=== PATIENT | male | born 1990 | race Caucasian/White ===

== ENCOUNTER 2020-12-28 14:06 | Emergency (ER) | payer OTHER ==
[~2020-12-28 14:06] MED LIST: COLACE 100MG C100 MG PO; NORCO 5-325 TA1 EACH PO; NORCO 7.5-3251 EACH PO; ZOFRAN ODT4 MG SL
[2020-12-28 15:21] LABS: HEMOGLOBIN 15.1 gm/dl (14.0-17.5); RED BLOOD COUNT 5.19 M/UL (4.20-5.50)
[2020-12-28 16:29] LABS: BUN/CREATININE RATIO 19 (0-10)
== END 2020-12-28 17:15 | disposition home or self-care (01) ==
LOC: ER1 14:06
PROVIDERS: Student in an Organized Health Care Education/Training Program
DX: R60.0 Localized edema (principal); I10 Essential (primary) hypertension
CPT/HCPCS: 71045; 80053; 82550; 82553; 83874; 83880; 84484; 85025; 85379; 93005; 99284

== ENCOUNTER 2021-02-09 14:23 | Emergency (ER) | payer OTHER ==
[2021-02-09] MEDS ORDERED: BACTRIM DS TAB1 EACH PO (15:54)
[2021-02-09] MEDS ORDERED: CEPHALEXIN500 M1 PO (15:54)
== END 2021-02-09 16:10 | disposition home or self-care (01) ==
LOC: ER1 14:23
DX: S62.630B Displaced fracture of distal phalanx of right index finger, initial encounter for open fracture (principal); S62.632B Displaced fracture of distal phalanx of right middle finger, initial encounter for open fracture; S61.312A Laceration without foreign body of right middle finger with damage to nail, initial encounter; X58.XXXA Exposure to other specified factors, initial encounter
CPT/HCPCS: 11760; 73130; 96374; 96375; 99283; J0690; J1170; J2270; J2405; J7030

== ENCOUNTER 2021-02-18 08:34 | Emergency (ER) | payer OTHER ==
[~2021-02-18 08:34] MED LIST changes: +BACTRIM DS TAB1 EACH PO; +CEPHALEXIN500 M1 PO
[2021-02-18] MEDS ORDERED: BACTRIM DS TAB1 EACH PO (09:12)
== END 2021-02-18 09:14 | disposition home or self-care (01) ==
LOC: ER1 08:34
DX: T81.40XA Infection following a procedure, unspecified, initial encounter (principal)
CPT/HCPCS: 99281

== ENCOUNTER → 2021-02-25 | Outpatient (CLI) | payer OTHER | LOC: RAD 13:05 | DX: S61.411A Laceration without foreign body of right hand, initial encounter (principal); S62.630A Displaced fracture of distal phalanx of right index finger, initial encounter for closed fracture; S62.632A Displaced fracture of distal phalanx of right middle finger, initial encounter for closed fracture | CPT/HCPCS: 73130 ==